=== PATIENT | male | born 1980 | race African-American/Black ===

== ENCOUNTER 2025-07-29 16:00 | Emergency (ER) | payer BC ==
[~2025-07-29] VITALS: Ht 185.4 cm; Wt 90.7 kg
[2025-07-29 16:22] VITALS: TEMP 98.3
[2025-07-29] MEDS ORDERED: ACETAMINOPHEN 325 MG TABLET ONE (16:45)
[2025-07-29] MEDS: ACETAMINOPHEN 325 MG TABLET PO ONE (16:48)
[2025-07-29 18:00] VITALS: BP 121/75; O2SAT 98
== END 2025-07-29 18:34 | disposition home or self-care (01) ==
LOC: ER 16:09
DX: M79.674 Pain in right toe(s) (principal); M54.50 Low back pain, unspecified; V89.2XXA Person injured in unspecified motor-vehicle accident, traffic, initial encounter; Y93.89 Activity, other specified; Y92.410 Unspecified street and highway as the place of occurrence of the external cause; Y99.8 Other external cause status
CPT/HCPCS: 72110-TC; 73630-TC